=== PATIENT | female | born 1960 | race Caucasian/White ===

== ENCOUNTER → 2017-04-10 | Outpatient (CLI) | payer OTHER ==
[~2017-04-10] MED LIST: BIOT1TAB2 PO; BIOT25005 PO; CALC-39 PO; CALC500T PO; CHOL200024 PO; FISH1CAP PO; VITAMINS PO; [UNRECOGNIZED DRUG - CODE] PO
== END ==
LOC: STAR 11:10
PROVIDERS: ATTEND Internal Medicine Geriatric Medicine
DX: Z02.9 Encounter for administrative examinations, unspecified (principal)